=== PATIENT | female | born 2005 | race Asian ===

== ENCOUNTER → 2024-06-16 | Outpatient (REF) | payer OTHER | LOC: MAMMO 08:56 | PROVIDERS: ATTEND Internal Medicine | DX: N63.20 Unspecified lump in the left breast, unspecified quadrant (principal); N63.10 Unspecified lump in the right breast, unspecified quadrant ==

== ENCOUNTER → 2024-12-21 | Outpatient (REF) | payer OTHER | LOC: US 12:46 | PROVIDERS: ATTEND Internal Medicine | DX: R92.30 Dense breasts, unspecified (principal) ==